=== PATIENT | male | born 1995 | race Caucasian/White ===

== ENCOUNTER → 2018-11-13 | Outpatient (CLI) | payer BC ==
[2018-11-13 17:20] LABS: Basophils % (A) 1 %; Eosinophils # (A) 0.1 k/uL (0-0.7); Eosinophils % (A) 1 %; HCT 42.8 % (39.0-53.0); HGB 14.7 gm/dL (13.0-17.5); Lymphocytes # (A) 1.6 k/uL (1.0-4.8); Lymphocytes % (A) 20 %; MCH 28.9 pg (25.0-35.0); MCHC 34.3 g/dL (31.0-37.0); Monocytes # (A) 0.6 k/uL (0-1.0); Monocytes % (A) 7 %; Neutrophils # (A) 5.6 k/uL (1.3-7.7); Neutrophils % (A) 70 %; Platelet Count 361 k/uL (150-450); RDW 13.6 % (11.5-15.5); WBC 8.1 k/uL (3.8-10.6)
[2018-11-14 01:19] LABS: Albumin 4.9 g/dL (3.80-4.90); Albumin/Globulin Ratio 2.45 (1.60-3.17); Anion Gap 10.4 mmol/L (4.00-12.00); Calcium 9.6 mg/dL (8.7-10.3); Carbon Dioxide 25.6 mmol/L (21.6-31.8); Potassium 4.5 mmol/L (3.5-5.5); Total Bilirubin 0.4 mg/dL (0.3-1.2); Total Protein 6.9 g/dL (6.2-8.2)
== END | disposition home or self-care (01) ==
LOC: LABWHC1 16:16
PROVIDERS: ATTEND Internal Medicine Gastroenterology
DX: R74.8 Abnormal levels of other serum enzymes (principal)
CPT/HCPCS: 36415; 80053; 85025

== ENCOUNTER → 2022-04-20 | Outpatient (CLI) | payer OTHER ==
--- NOTE | 2022-04-20 10:13 | CA ---
Stress Echo Report Jameson Franco Age: 26 Gender: M : 1995 Exam Date: 04/20/2022 09:24 Exam Location: [facility] Ht (in): 73 Wt (lb): 245 Ordering Physician: Rip Cruz DO Referring Physician: THU,, Broom Builder: Cathie Shearer RDCS Technologist Procedure CPT: Indication: R00.0 tachycardia ICD-9 Codes: Rhythm: Patient History: Family history Cardiac Medications: No cardiac medications Medications in past 24 hours: Other-specify Contrast: Stress Results Protocol: Adonis Total dose(mL): Exercise Duration (min:sec): 10.[address] Depression (mm): Angina Score: Alaniz Score: METS: 12.1 Resting HR: 102 Resting BP: 126 / 73 Peak HR: 180 Peak BP: 207 / 88 Max Predicted HR: 192 94 % Max Predicted HR Target HR: 163 Double Product: 36180 Stress Summary: BP Response: Reason for Termination: MAX EXERTION/TARGET HR Cardiac Symptoms: NO SYMPTOMS ECG Analysis Resting ECG: Normal sinus rhythm normal axis normal intervals Stress ECG: No significant ST segment depression Arrhythmia: Echo Analysis Resting Echo: Normal left ventricular size wall motion systolic function Peak Echo Analysis: Normal hyperdynamic response of all segments of myocardium MEASUREMENTS (Male/Female) Normal Values CONCLUSIONS Excellent exercise tolerance Negative stress test by EKG criteria Negative stress echo Dr. Ferny Drake MD (Electronically Signed) Final Date: 20 April 2022 10:12
== END | disposition home or self-care (01) ==
LOC: RADNMMAIN 08:54
PROVIDERS: ATTEND Family Medicine
DX: R00.0 Tachycardia, unspecified (principal)
CPT/HCPCS: 93351